=== PATIENT | female | born 1965 | race Caucasian/White ===

== ENCOUNTER 2020-11-05 06:21 | Observation (INO) | payer OTHER ==
[2020-11-02 15:08] LABS: BASOPHILS # (AUTO) 0.1 (0.0-0.1); BASOPHILS % 0.6 % (0.0-1.0); EOSINOPHILS # (AUTO) 0.4 (0.0-0.4); HEMOGLOBIN 12.3 g/dL (12.0-16.0); LYMPHOCYTES # (AUTO) 2.6 (1.0-3.2); LYMPHOCYTES % 30.7 % (18.0-39.1); MEAN CORPUSCULAR HEMOGLOBIN 31.1 pg (28-32); MEAN CORPUSCULAR HGB CONC 32.4 g/dL (31-35); MEAN CORPUSCULAR VOLUME 96.2 fL (81-99); MONOCYTES # (AUTO) 0.5 (0.2-0.8); MONOCYTES % 5.9 % (4.4-11.3); NEUTROPHILS # (AUTO) 4.9 (2.1-6.9); NEUTROPHILS % 57.3 % (38.7-80.0); PLATELET COUNT 352 x10e3/uL (140-360); RED BLOOD COUNT 3.95 x10e6/uL (3.6-5.1); RED CELL DISTRIBUTION WIDTH 13.5 % (11.7-14.4)
[2020-11-02 15:30] LABS: INR 0.85; PROTHROMBIN TIME 12.2 seconds (11.9-14.5)
[2020-11-02 15:31] LABS: PARTIAL THROMBOPLASTIN TIME 39.8 seconds (23.8-35.5)
[2020-11-02 15:37] LABS: ANION GAP 11.9 mmol/L (8-16); BLOOD UREA NITROGEN 8 mg/dL (7-26); BUN/CREATININE RATIO 11 (6-25); CALCIUM 8.6 mg/dL (8.4-10.2); CARBON DIOXIDE 24 mmol/L (22-29); CHLORIDE 105 mmol/L (98-107); CREATININE, SERUM 0.72 mg/dL (0.57-1.11); EST GLOMERULAR FILTRATION RATE > 60 ML/MIN (60-); GLUCOSE 92 mg/dL (74-118); POTASSIUM 3.9 mmol/L (3.5-5.1); SODIUM 137 mmol/L (136-145)
[~2020-11-05] VITALS: Ht 165.1 cm; Wt 93.9 kg
[~2020-11-05 06:21] MED LIST: ACYCLOVIR200 MG PO; ALBUTEROL0.63 MG/3 NEB; DIAZEPAM5 MG PO; GABAPENTIN400 MG PO; HUMIRA40 MG/0.8 INJ; LEXAPRO20 MG PO; METHOTREXA25 MG/1 ML INJ; METHYLPHENIDATE10 MG PO; PANTOPRAZOLE SO40 MG PO; SODIUM CHLORIDE 0.9% 50ML 50 ML ONE; TIZANIDINE HCL4 M1 PO; TYLENOL # 31 EA PO; VASOTEC10 M1 PO; VIT B12 INJ
[2020-11-05] MEDS ORDERED: Vancomycin IV 1 GM VIAL ONE (06:41)
[2020-11-05] MEDS ORDERED: LIDOCAINE 1% W/EPINEPHRINE 20 ML VIAL ONE (06:41)
[2020-11-05] MEDS ORDERED: THROMBIN FOR SOLN 5,000 UNIT VIAL ONE (06:41)
[2020-11-05] MEDS ORDERED: ACETAMINOPHEN 1000 MG/100 ML 100 ML IV ONE (08:22)
[2020-11-05] MEDS ORDERED: IBUPROFEN 800MG/ 200ML 200 ML IV ONE (08:22)
[2020-11-05] MEDS ORDERED: HYDROCODON-ACE1 EA12 PO (09:06)
[2020-11-05] MEDS ORDERED: CARISOPRODOL 350 MG TAB PO PRN (09:15)
[2020-11-05] MEDS ORDERED: PROMETHAZINE HCL (IM) 25 MG/ML VIAL IM PRN (09:15)
[2020-11-05] MEDS ORDERED: CEPACOL SORE THROAT LOZENGES PO PRN (09:15)
[2020-11-05] MEDS ORDERED: ALBUTEROL SULF 0.083% NEB SOLN 3 ML NEB NEB PRN (09:15)
[2020-11-05] MEDS ORDERED: ZOLPIDEM TARTRATE 5 MG TAB PO PRN (09:15)
[2020-11-05] MEDS ORDERED: ONDANSETRON HCL INJ 2MG/ML 2ML 2 MG/ML VIAL IV PRN (09:15)
[2020-11-05] MEDS ORDERED: MORPHINE SULFATE INJ 4 MG/ML INJ 1ML IM PRN (09:15)
[2020-11-05] MEDS ORDERED: OXYCODONE/ACETAMINOPHEN 5-325 1 EACH TABLET PO PRN (09:15)
[2020-11-05] MEDS ORDERED: ACETAMINOPHEN 325 MG TAB PO PRN (09:15)
[2020-11-05] MEDS ORDERED: MAGNESIUM/ALUMINUM/SIMETHICONE 30 ML UDC PO PRN (09:15)
[2020-11-05] MEDS ORDERED: MEPERIDINE HCL INJ 25 MG/ML VIAL ONE (09:31)
[2020-11-05 10:19] VITALS: BP 150/68
[2020-11-05 10:20] VITALS: BP 150/68
[2020-11-05 10:24] VITALS: BP 150/68
[2020-11-05] MEDS: LACTATED RINGER'S 1,000 ML IV SCH ×2 (11:29→19:20)
[2020-11-05] MEDS ORDERED: LIDOCAINE HCL 2% JELLY 5 ML TUBE ONE (12:28)
[2020-11-05] MEDS ORDERED: ONDANSETRON HCL INJ 2MG/ML 2ML 2 MG/ML VIAL ONE (12:28)
[2020-11-05] MEDS ORDERED: PROPOFOL IV EMULSION 10 MG/ML 20 ML VIAL ONE (12:28)
[2020-11-05] MEDS ORDERED: GLYCOPYRROLATE INJ 0.2 MG/ML VIAL ONE (12:28)
[2020-11-05] MEDS ORDERED: SEVOFLURANE INHAL SOLN 250 ML PEN BTL ONE (12:28)
[2020-11-05] MEDS ORDERED: ROCURONIUM BROMIDE 10 MG/ML 5ML VIAL IV ONE (12:28)
[2020-11-05] MEDS ORDERED: LIDOCAINE HCL 2% LOCAL INJ 5 ML SDV VIAL INJ ONE (12:28)
[2020-11-05] MEDS ORDERED: DEXAMETHASONE SOD PHOS INJ 4 MG/ML VIAL ONE (12:28)
[2020-11-05] MEDS ORDERED: POVIDONE IODINE 0.05% 0.05 % ML PO ONE (12:28)
[2020-11-05] MEDS ORDERED: NEOSTIGMINE 1 MG/ML 10ML VIAL ONE (12:28)
[2020-11-05] MEDS: HYDROMORPHONE 2MG/ML 2 MG/ML ML IV PRN ×3 (12:48→23:21)
[2020-11-05] MEDS ORDERED: MIDAZOLAM HCL 2 MG/2 ML VIAL ONE (13:29)
[2020-11-05] MEDS ORDERED: FENTANYL CITRATE/PF 100MCG/2 ML INJ ONE (13:29)
[2020-11-05] MEDS: GABAPENTIN 400 MG CAP PO SCH ×2 (14:59→22:27)
[2020-11-05] MEDS: TIZANIDINE HCL 4 MG TAB PO SCH ×2 (14:59→22:29)
[2020-11-05] MEDS ORDERED: ACETAMINOPHEN/CODEINE 300MG - 30MG TAB PO SCH (15:00)
[2020-11-05 15:56] VITALS: BP 118/78
[2020-11-05] MEDS: METHYLPHENIDATE HCL 10 MG TAB PO SCH ×2 (16:19→22:27)
[2020-11-05] MEDS: Cefazolin 1 GM in SODIUM CHLORIDE 0.9% 50ML 50 ML IV SCH (16:19)
[2020-11-05] MEDS ORDERED: ACYCLOVIR 200 MG CAP PO SCH (17:00)
[2020-11-05] MEDS ORDERED: DIAZEPAM 2 MG TAB PO SCH (17:00)
[2020-11-05 20:00] VITALS: BP 107/61
[2020-11-05] MEDS ORDERED: ENALAPRIL MALEATE 10 MG TAB PO SCH (21:00)
[2020-11-06] VITALS: BP 110/60
[2020-11-06] MEDS ORDERED: PANTOPRAZOLE SOD 40 MG TABEC PO SCH ×2 (01:07→07:30)
[2020-11-06] MEDS: HYDROMORPHONE 2MG/ML 2 MG/ML ML IV PRN ×2 (03:33→06:35)
[2020-11-06] MEDS: LACTATED RINGER'S 1,000 ML IV SCH (03:40)
[2020-11-06 04:00] VITALS: BP 141/73
[2020-11-06] MEDS: Cefazolin 1 GM in SODIUM CHLORIDE 0.9% 50ML 50 ML IV SCH ×3 (07:27)
[2020-11-06 08:11] VITALS: BP 102/59
[2020-11-06] MEDS ORDERED: ESCITALOPRAM OXALATE 10 MG TAB PO SCH (09:00)
[2020-11-06 09:02] VITALS: BP 102/59
== END 2020-11-06 09:15 | disposition home or self-care (01) ==
LOC: OR 06:21 → PACU V 09:20 → MED/SURG 10:07
PROVIDERS: ADMIT Neurological Surgery; ATTEND Neurological Surgery
DX: M50.120 Mid-cervical disc disorder, unspecified level (principal); Z20.822 Contact with and (suspected) exposure to COVID-19; Z01.818 Encounter for other preprocedural examination; Z72.0 Tobacco use; I10 Essential (primary) hypertension
CPT/HCPCS: 20931; 22551; 22552; 22845; 36415; 71046; 72040; 77003; 80048; 85025; 85610; 85730; 86850; 86900; 88304; 93005; C1713 ×5; C1763; G0378 ×2; J0131; J0690 ×2; J1100; J1170 ×2; J2001 ×2; J2175; J2405; J2704; J2710; J3370; J7121; S0164; U0002